=== PATIENT | female | born 1975 | race Caucasian/White ===

== ENCOUNTER 2017-02-22 08:23 | Emergency (ER) | payer OTHER ==
[~2017-02-22] VITALS: Ht 165.1 cm; Wt 71.2 kg
[2017-02-22 08:54] LABS: ADD MIUA? YES; BILIRUBIN NEGATIVE; BLOOD SMALL; COLOR YELLOW ((YELLOW)); GLUCOSE (STRIP) NEGATIVE; KETONES 80; LEUKOCYTES MODERATE; NITRITE NEGATIVE; PROTEIN (STRIP) 30; SPECIFIC GRAVITY 1.019 (1.000-1.030); UROBILINOGEN 0.2 MG/DL (0.2-1.0)
[2017-02-22 09:05] LABS: BACTERIA RARE /HPF; EPITHELIAL CELLS 2+ /HPF; MUCUS 2+ /LPF; RED BLOOD CELLS 0-5 /HPF (0-5); UCUL ADDED? NO; WHITE BLOOD CELLS 0-5 /HPF (0-5)
[2017-02-22 11:25] LABS: HEMATOCRIT 36.2 % (36.0-46.0); MCHC 33.7 G/DL (30.0-36.0); MCV 89.2 FL (83-99); RBC DIS.WIDTH-CV 13.2 % (11.8-14.6); RBC DIS.WIDTH-SD 43.3 % (39-53); RED BLOOD COUNT 4.06 M/uL (3.80-5.20); WHITE BLOOD COUNT 4.5 K/uL (4.1-10.2)
[2017-02-22 11:33] LABS: CHLORIDE 108 mEq/L (99-109); SODIUM 137 mEq/L (136-147)
[2017-02-22 11:35] LABS: GLUCOSE 85 mg/dL (70-99)
[2017-02-22 11:36] LABS: ANION GAP 11 MEQ/L (2-14)
[2017-02-22 11:37] LABS: TOTAL BILIRUBIN 0.6 mg/dL (0.0-1.0)
[2017-02-22 11:38] LABS: ALKALINE PHOSPHATASE 39 IU/L (3-129)
[2017-02-22 11:39] LABS: GFR ESTIMATE (CALCULATED) > 59 mL/min/
[2017-02-22 11:40] LABS: UREA NITROGEN (BUN) 12 mg/dL (9-23)
[2017-02-22 11:42] LABS: LIPASE 20 U/L (1.0-51.0)
[2017-02-22 11:50] LABS: QUANTITATIVE HCG < 4.0 MIU/ML
[2017-02-22 13:11] LABS: MEAN PLAT.VOLUME 11.3 uM^3 (9.5-12.4); PLATELET COUNT 66 K/uL (156-360)
[2017-02-22] MEDS ORDERED: ZOFRAN ODT4 MG PO (14:05)
[2017-02-22] MEDS ORDERED: PERCOCET 5/31 TABLET PO (14:05)
[2017-02-22 14:55] VITALS: BP 115/97
== END 2017-02-22 14:59 | disposition home or self-care (01) ==
LOC: EME 08:23
DX: R10.84 Generalized abdominal pain (principal); R19.7 Diarrhea, unspecified; R11.0 Nausea; R21 Rash and other nonspecific skin eruption
CPT/HCPCS: 74177; 80053; 81003; 83690; 84702; 85027; 99281; 99285; J1200; J2405; J2930; J3010; J7030; S0028

== ENCOUNTER 2017-05-14 10:51 | Emergency (ER) | payer SELFPAY ==
[~2017-05-14] VITALS: Ht 165.1 cm; Wt 70.7 kg
[~2017-05-14 10:51] MED LIST: PERCOCET 5/31 TABLET PO; ZOFRAN ODT4 MG PO
[2017-05-14 12:23] LABS: ADD MIUA? YES; BILIRUBIN NEGATIVE; BLOOD SMALL; COLOR YELLOW ((YELLOW)); GLUCOSE (STRIP) NEGATIVE; KETONES NEGATIVE; LEUKOCYTES NEGATIVE; NITRITE NEGATIVE; PROTEIN (STRIP) NEGATIVE; SPECIFIC GRAVITY 1.017 (1.000-1.030); UROBILINOGEN 0.2 MG/DL (0.2-1.0)
[2017-05-14 12:25] LABS: BACTERIA NONE SEEN /HPF; EPITHELIAL CELLS 1+ /HPF; MUCUS TRACE /LPF; RED BLOOD CELLS 0-5 /HPF (0-5)
[2017-05-14 12:35] LABS: MCH 29.9 PG (29.0-34.0); MCHC 32.7 G/DL (30.0-36.0); MCV 91.4 FL (83-99); RBC DIS.WIDTH-CV 12.2 % (11.8-14.6); RBC DIS.WIDTH-SD 40.9 % (39-53); RED BLOOD COUNT 4.05 M/uL (3.80-5.20); WHITE BLOOD COUNT 6.8 K/uL (4.1-10.2)
[2017-05-14 12:45] LABS: CHLORIDE 108 mEq/L (99-109); POTASSIUM 4.5 mEq/L (3.7-5.4); SODIUM 140 mEq/L (136-147)
[2017-05-14 12:47] LABS: GLUCOSE 86 mg/dL (70-99)
[2017-05-14 12:48] LABS: ANION GAP 7 MEQ/L (2-14)
[2017-05-14 12:51] LABS: GFR ESTIMATE (CALCULATED) > 59 mL/min/
[2017-05-14 12:52] LABS: UREA NITROGEN (BUN) 13 mg/dL (9-23)
[2017-05-14 13:17] LABS: MEAN PLAT.VOLUME 10.7 uM^3 (9.5-12.4); PLATELET COUNT 140 K/uL (156-360)
[2017-05-14 13:18] LABS: PLAT.SUFFICIENCY ADEQUATE
[2017-05-14] MEDS ORDERED: ZOFRAN ODT8 MG PO (13:42)
[2017-05-14] MEDS ORDERED: PERCOCET 5/31 TABLET PO (13:42)
[2017-05-14] MEDS ORDERED: PREDNISONE5 M1 PO (13:45)
[2017-05-14 14:02] VITALS: BP 132/76
== END 2017-05-14 14:04 | disposition home or self-care (01) ==
LOC: EME 10:51
PROVIDERS: Physician Assistant
DX: R10.30 Lower abdominal pain, unspecified (principal); R11.2 Nausea with vomiting, unspecified; R19.7 Diarrhea, unspecified; K59.00 Constipation, unspecified; K50.90 Crohn's disease, unspecified, without complications
CPT/HCPCS: 74020; 80048; 81003; 85027; 99281; 99282; J2405; J3010